=== PATIENT | female | born 1990 | race American Indian/Alaskan Native ===

== ENCOUNTER 2017-07-22 00:08 | Emergency (ER) | payer MEDICAID | END 2017-07-22 00:36 | disposition left against medical advice (07) | LOC: DL.ED 00:08 | DX: Z53.21 Procedure and treatment not carried out due to patient leaving prior to being seen by health care provider (principal) ==

== ENCOUNTER 2018-12-01 19:48 | Emergency (ER) | payer MEDICAID ==
[2018-12-01 20:19] VITALS: BP 143/89
[2018-12-01 21:06] LABS: ANION GAP 12.6; CHLORIDE,CL 98 mmol/L (101-111); SODIUM,NA 133 mmol/L (135-145)
[2018-12-01] MEDS ORDERED: Sodium Chloride 0.9% 1,000 ML IV ONE ×2 (22:19→22:36)
[2018-12-01] MEDS ORDERED: Piperacillin/Tazobactam 3.375 GM in Sodium Chloride 0.9% 100 ML IV ONE (22:20)
[2018-12-01] MEDS ORDERED: Clindamycin Phosphate 600 MG in Sodium Chloride 0.9% 100 ML IV ONE (22:39)
[2018-12-01] MEDS ORDERED: Ibuprofen 800 MG Tab PO ONE (22:39)
--- NOTE | 2018-12-01 23:41 | EDM.PDOC ---
ED HPI GENERAL MEDICAL PROBLEM - General Chief Complaint: Headache Stated Complaint: MIGRAINE Time Seen by Provider: 12/01/18 21:50 Source of Information: Reports: Patient, RN, RN Notes Reviewed History Limitations: Reports: No Limitations - History of Present Illness INITIAL COMMENTS - FREE TEXT/NARRATIVE: Pt to ER with c/o red area on the lower abdomen that she states began this morning and progressively get larger over the day. She states she noticed "something" different on the abdomen last evening, such as "pores popping out". She admits to fever, chills, low back ache, headache. Denies N/V/D, CP, SOB. Patient states she had a about 4 months ago. Onset: Today, Sudden Duration: Getting Worse Location: Reports: Abdomen Quality: Reports: Burning Severity: Severe Improves with: Reports: None Worsens with: Reports: None Associated Symptoms: Reports: Fever/Chills, Headaches Treatments TRANSCRIPTION TYPIST: Reports: Acetaminophen - Related Data Allergies Allergy/AdvReac Type Severity Reaction Status Date / Time pseudoephedrine Allergy Cannot Verified 12/01/18 20:12 [From Jenny] Remember Home Meds: Home Meds Ibuprofen [Motrin] 600 mg PO Q6H PRN #30 tablet 08/12/18 [Rx] Levothyroxine 75 mcg PO ACBREAKFAST #30 tablet 08/12/18 [Rx] Past Medical History - Past Health History Medical/Surgical History: Denies Medical/Surgical History Gastrointestinal History: Reports: Cholelithiasis, Chronic Constipation, GERD 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 Psychiatric History: Reports: Anxiety Other Psychiatric History: patient states that she has anxiety Endocrine/Metabolic History: Reports: Hyperthyroidism, Obesity/BMI 30+ Hematologic History: Reports: Anemia, Blood Transfusion(s) Dermatologic History: Reports: Psoriasis - Past Surgical History HEENT Surgical History: Reports: Oral Surgery GI Surgical History: Reports: Appendectomy, Cholecystectomy Female Surgical History: Reports: Section Social & Family History - Family History Family Medical History: Noncontributory Musculoskeletal: Reports: Arthritis, RA - Tobacco Use Smoking Status *Q: Never Smoker - Caffeine Use Caffeine Use: Reports: Soda - Recreational Drug Use Recreational Drug Use: Yes Recreational Drug Type: Reports: Marijuana/Hashish Recreational Drug Use Frequency: Binges Recreational Drug Last Use: 11/30/2018 - Living Situation & Occupation Living situation: Reports: , with Family Occupation: Employed ED ROS GENERAL - Review of Systems Review Of Systems: ROS reveals no pertinent complaints other than HPI. ED EXAM, SKIN/RASH Exam: See Below Exam Limited By: No Limitations General Appearance: Alert, WD/WN, Moderate Distress Eye Exam: Bilateral Eye: EOMI, Normal Inspection Ears: Normal External Exam, Hearing Grossly Normal Nose: Normal Inspection Throat/Mouth: Normal Inspection, Normal Voice, No Airway Compromise Head: Atraumatic, Normocephalic Neck: Normal Inspection, Supple, Non-Tender, Full Range of Motion Respiratory/Chest: No Respiratory Distress, Lungs Clear, Normal Breath Sounds, No Accessory Muscle Use, Chest Non-Tender Cardiovascular: Normal Peripheral Pulses, Regular Rate, Rhythm, No Edema, No Gallop, No JVD, No Murmur, No Rub Peripheral Pulses: 2+: Radial (L), Radial (R) GI/Abdominal: Normal Bowel Sounds, Soft, Tender (mid sections, lower abdomen) (Female) Exam: Deferred Rectal (Female) Exam: Deferred Back Exam: Normal Inspection, Full Range of Motion Extremities: Normal Inspection, Normal Range of Motion, Non-Tender, No Pedal Edema, Normal Capillary Refill Neurological: Alert, Oriented, CN II-XII Intact, Normal Cognition, Normal Gait, Normal Reflexes, No Motor/Sensory Deficits Psychiatric: Anxious, Tearful Skin: Warm, Dry, Erythema, Increased Warmth ([id number] cellulitis on midsection below umbilical) Location, Skin: Abdomen Associated features: Warmth, Tenderness, Swelling, Induration Lymphatic: No Adenopathy Course - Vital Signs Last Recorded V/S: Last Vital Signs Temp 99.9 F 12/01/18 22:52 Pulse 118 H 12/01/18 20:18 Resp 20 12/01/18 20:18 BP 143/89 H 12/01/18 20:18 Pulse Ox 100 12/01/18 20:18 - Orders/Labs/Meds Orders: Active Orders 24 hr Category Date Time Status CULTURE BLOOD [BC] Stat Lab 12/01/18 20:38 Received CULTURE BLOOD [BC] Stat Lab 12/01/18 20:42 Received Labs: Laboratory Tests 12/01/18 12/01/18 12/01/18 Range/Units 20:17 20:19 20:19 WBC (5.0-10.0) 10^3/uL RBC (4.2-5.4) 10^6/uL Hgb (12.0-16.0) g/dL Hct (37.0-47.0) % MCV (80-100) fL MCH (27.0-34.0) pg MCHC (33.0-35.0) g/dL Plt Count (150-450) 10^3/uL Neut % (Auto) (42.2-75.2) % Lymph % (Auto) (20.5-50.1) % [place] % (Auto) (2-8) % Eos % (Auto) (1.0-3.0) % Baso % (Auto) (0.0-1.0) % ESR (0-20) mm/hr Sodium (135-145) mmol/L Potassium (3.6-5.0) mmol/L Chloride (101-111) mmol/L Carbon Dioxide (21.0-31.0) mmol/L Anion Gap BUN (7-18) mg/dL Creatinine (0.6-1.3) mg/dL Est Cr Clr Drug Dosing mL/min Estimated GFR (MDRD) BUN/Creatinine Ratio Glucose (74-105) mg/dL Lactic Acid (0.5-2.2) mmol/L Calcium (8.4-10.2) mg/dl Total Bilirubin (0.2-1.0) mg/dL AST (10-42) IU/L ALT (10-60) IU/L Alkaline Phosphatase (42-121) IU/L Creatine Kinase (26-174) IU/L Creatine Kinase Index (0-2.4) % CK-MB (CK-2) (0.4-4.7) ng/mL C-Reactive Protein (0.0-1.3) mg/dL Total Protein (6.7-8.2) g/dl Albumin (3.2-5.5) g/dl Globulin Albumin/Globulin Ratio Urine Color Yellow (YELLOW) Urine Appearance Clear (CLEAR) Urine pH 7.5 (5.0-9.0) Ur Specific [place] 1.015 (1.005-1.030) Urine Protein Negative (NEGATIVE) Urine Glucose (UA) Negative (NEGATIVE) Urine Ketones Negative (NEGATIVE) Urine Occult Blood Negative (NEGATIVE) Urine Nitrite Negative (NEGATIVE) Urine Bilirubin Negative (NEGATIVE) Urine Urobilinogen 0.2 (0.2-1.0) mg/dL Ur Leukocyte Esterase Negative (NEGATIVE) Urine HCG, Qual Negative Urine Opiates Screen Negative (NEGATIVE) Ur Oxycodone Screen Positive H (NEGATIVE) Urine Methadone Screen Negative (NEGATIVE) Ur Barbiturates Screen Negative (NEGATIVE) U Tricyclic Antidepress Negative (NEGATIVE) Ur Phencyclidine Scrn Negative (NEGATIVE) Ur Amphetamine Screen Negative (NEGATIVE) U Methamphetamines Scrn Negative (NEGATIVE) Urine MDMA Screen Negative (NEGATIVE) U Benzodiazepines Scrn Negative (NEGATIVE) Urine Cocaine Screen Negative (NEGATIVE) U Marijuana (THC) Screen Positive H (NEGATIVE) 12/01/18 12/01/18 12/01/18 Range/Units 20:38 20:38 20:38 WBC 17.1 H (5.0-10.0) 10^3/uL RBC 4.35 (4.2-5.4) 10^6/uL Hgb 11.0 L D (12.0-16.0) g/dL Hct 34.1 L (37.0-47.0) % MCV 78.4 L D (80-100) fL MCH 25.3 L (27.0-34.0) pg MCHC 32.3 L (33.0-35.0) g/dL Plt Count 382 D (150-450) 10^3/uL Neut % (Auto) 91.1 H (42.2-75.2) % Lymph % (Auto) 4.4 L (20.5-50.1) % [place] % (Auto) 3.6 (2-8) % Eos % (Auto) 0.7 L (1.0-3.0) % Baso % (Auto) 0.2 (0.0-1.0) % ESR (0-20) mm/hr Sodium 133 L (135-145) mmol/L Potassium 3.6 (3.6-5.0) mmol/L Chloride 98 L (101-111) mmol/L Carbon Dioxide 26.0 (21.0-31.0) mmol/L Anion Gap 12.6 BUN 10 (7-18) mg/dL Creatinine 0.8 (0.6-1.3) mg/dL Est Cr Clr Drug Dosing 83.54 mL/min Estimated GFR (MDRD) > 60 BUN/Creatinine Ratio 12.50 Glucose 100 (74-105) mg/dL Lactic Acid 0.8 (0.5-2.2) mmol/L Calcium 9.3 (8.4-10.2) mg/dl Total Bilirubin 0.8 (0.2-1.0) mg/dL AST 27 (10-42) IU/L ALT 21 (10-60) IU/L Alkaline Phosphatase 59 (42-121) IU/L Creatine Kinase (26-174) IU/L Creatine Kinase Index (0-2.4) % CK-MB (CK-2) (0.4-4.7) ng/mL C-Reactive Protein (0.0-1.3) mg/dL Total Protein 8.8 H (6.7-8.2) g/dl Albumin 4.3 (3.2-5.5) g/dl Globulin 4.5 Albumin/Globulin Ratio 0.96 Urine Color (YELLOW) Urine Appearance (CLEAR) Urine pH (5.0-9.0) Ur Specific [place] (1.005-1.030) Urine Protein (NEGATIVE) Urine Glucose (UA) (NEGATIVE) Urine Ketones (NEGATIVE) Urine Occult Blood (NEGATIVE) Urine Nitrite (NEGATIVE) Urine Bilirubin (NEGATIVE) Urine Urobilinogen (0.2-1.0) mg/dL Ur Leukocyte Esterase (NEGATIVE) Urine HCG, Qual Urine Opiates Screen (NEGATIVE) Ur Oxycodone Screen (NEGATIVE) Urine Methadone Screen (NEGATIVE) Ur Barbiturates Screen (NEGATIVE) U Tricyclic Antidepress (NEGATIVE) Ur Phencyclidine Scrn (NEGATIVE) Ur Amphetamine Screen (NEGATIVE) U Methamphetamines Scrn (NEGATIVE) Urine MDMA Screen (NEGATIVE) U Benzodiazepines Scrn (NEGATIVE) Urine Cocaine Screen (NEGATIVE) U Marijuana (THC) Screen (NEGATIVE) 12/01/18 12/01/18 Range/Units 20:38 20:38 WBC (5.0-10.0) 10^3/uL RBC (4.2-5.4) 10^6/uL Hgb (12.0-16.0) g/dL Hct (37.0-47.0) % MCV (80-100) fL MCH (27.0-34.0) pg MCHC (33.0-35.0) g/dL Plt Count (150-450) 10^3/uL Neut % (Auto) (42.2-75.2) % Lymph % (Auto) (20.5-50.1) % [place] % (Auto) (2-8) % Eos % (Auto) (1.0-3.0) % Baso % (Auto) (0.0-1.0) % ESR 20 (0-20) mm/hr Sodium (135-145) mmol/L Potassium (3.6-5.0) mmol/L Chloride (101-111) mmol/L Carbon Dioxide (21.0-31.0) mmol/L Anion Gap BUN (7-18) mg/dL Creatinine (0.6-1.3) mg/dL Est Cr Clr Drug Dosing mL/min Estimated GFR (MDRD) BUN/Creatinine Ratio Glucose (74-105) mg/dL Lactic Acid (0.5-2.2) mmol/L Calcium (8.4-10.2) mg/dl Total Bilirubin (0.2-1.0) mg/dL AST (10-42) IU/L ALT (10-60) IU/L Alkaline Phosphatase (42-121) IU/L Creatine Kinase 173 (26-174) IU/L Creatine Kinase Index 1.0 (0-2.4) % CK-MB (CK-2) 1.70 (0.4-4.7) ng/mL C-Reactive Protein 4.2 H (0.0-1.3) mg/dL Total Protein (6.7-8.2) g/dl Albumin (3.2-5.5) g/dl Globulin Albumin/Globulin Ratio Urine Color (YELLOW) Urine Appearance (CLEAR) Urine pH (5.0-9.0) Ur Specific [place] (1.005-1.030) Urine Protein (NEGATIVE) Urine Glucose (UA) (NEGATIVE) Urine Ketones (NEGATIVE) Urine Occult Blood (NEGATIVE) Urine Nitrite (NEGATIVE) Urine Bilirubin (NEGATIVE) Urine Urobilinogen (0.2-1.0) mg/dL Ur Leukocyte Esterase (NEGATIVE) Urine HCG, Qual Urine Opiates Screen (NEGATIVE) Ur Oxycodone Screen (NEGATIVE) Urine Methadone Screen (NEGATIVE) Ur Barbiturates Screen (NEGATIVE) U Tricyclic Antidepress (NEGATIVE) Ur Phencyclidine Scrn (NEGATIVE) Ur Amphetamine Screen (NEGATIVE) U Methamphetamines Scrn (NEGATIVE) Urine MDMA Screen (NEGATIVE) U Benzodiazepines Scrn (NEGATIVE) Urine Cocaine Screen (NEGATIVE) U Marijuana (THC) Screen (NEGATIVE) Meds: Medications Discontinued Medications Generic Name Dose Route Start Last Admin Trade Name Freq PRN Reason Stop Dose Admin Piperacillin Sod/Tazobactam 100 mls @ 200 mls/hr 12/01/18 22:20 12/01/18 22: 50 Sod 3.375 gm/ Sodium Chloride IV 12/01/18 22:49 Not Given ONETIME ONE Sodium Chloride 1,000 mls @ 150 mls/hr 12/01/18 22:19 Normal Saline IV 12/02/18 04:58 .BOLUS ONE Sodium Chloride 1,000 mls @ 999 mls/hr 12/01/18 22:36 12/01/18 22:43 Normal Saline IV 12/01/18 23:36 999 mls/hr .BOLUS ONE Administration Clindamycin Phosphate 600 mg/ 104 mls @ 200 mls/hr 12/01/18 22:39 12/01/18 22 :56 Sodium Chloride IV 12/01/18 23:10 200 mls/hr ONETIME ONE Administration Ibuprofen 800 mg 12/01/18 22:39 12/01/18 22:52 Motrin PO 12/01/18 22:40 800 mg ONETIME ONE Administration Departure - Departure Time of Disposition: 23:40 Disposition: Home, Self-Care 01 Condition: Fair Clinical Impression: Cellulitis Qualifiers: Site of cellulitis: other site Qualified Code(s): L03.818 - Cellulitis of other sites - Discharge Information *PRESCRIPTION DRUG MONITORING PROGRAM REVIEWED*: No *COPY OF PRESCRIPTION DRUG MONITORING REPORT IN PATIENT WENDY: No Instructions: Cellulitis, Adult, [id number] Referrals: Ella Cuevas MD [Physician] - Forms: ED Department Discharge Additional Instructions: Use Tylenol and/or ibuprofen as directed for pain and fever RX: Bactrim Follow up with your primary care facility - My Orders Last 24 Hours: My Active Orders 12/01/18 20:38 CULTURE BLOOD [BC] Stat 12/01/18 20:42 CULTURE BLOOD [BC] Stat - Assessment/Plan Last 24 Hours: My Active Orders 12/01/18 20:38 CULTURE BLOOD [BC] Stat 12/01/18 20:42 CULTURE BLOOD [BC] Stat
== END 2018-12-01 23:47 | disposition home or self-care (01) ==
LOC: DL.ED 19:48
DX: L03.818 Cellulitis of other sites (principal); E66.9 Obesity, unspecified; Z88.8 Allergy status to other drugs, medicaments and biological substances
CPT/HCPCS: 36415; 74176; 80053; 80305; 81003; 81025; 82550; 82553; 83605; 85025; 85651; 86140; 87040; 96361; 96365; 99284; A9270; J3490; J7030; J7050

== ENCOUNTER 2020-11-20 18:36 | Emergency (ER) | payer MEDICAID ==
[2020-11-20 17:22] VITALS: BP 138/86; PULSE 62
--- NOTE | 2020-11-20 17:39 | EDM.PDOCBH ---
ED HPI GENERAL MEDICAL PROBLEM - General Chief Complaint: Behavioral/Psych Time Seen by Provider: 11/20/20 17:25 Source of Information: Reports: Patient History Limitations: Reports: No Limitations - History of Present Illness INITIAL COMMENTS - FREE TEXT/NARRATIVE: This 30 yo female patient reports to the ED due to increased anxiety. Onset: Today Duration: Minutes: Location: Reports: Chest Quality: Reports: Other Severity: Moderate Improves with: Reports: None Worsens with: Reports: None Associated Symptoms: Reports: Chest Pain, Shortness of Breath - Related Data Allergies Allergy/AdvReac Type Severity Reaction Status Date / Time pseudoephedrine Allergy Cannot Verified 12/01/18 20:12 [From Sudafed] Remember Home Meds: Home Meds Ibuprofen [Motrin] 600 mg PO Q6H PRN #30 tablet 08/12/18 [Rx] Levothyroxine 75 mcg PO ACBREAKFAST #30 tablet 08/12/18 [Rx] Omeprazole Magnesium 20 mg PO DAILY 06/08/19 [History] Cyanocobalamin (Vitamin B-12) [Vitamin B-12] 100 mcg PO ASDIRECTED 11/20/20 [History] Escitalopram Oxalate 30 mg PO DAILY 11/20/20 [History] Past Medical History - Past Health History Medical/Surgical History: Denies Medical/Surgical History Gastrointestinal History: Reports: Cholelithiasis, Chronic Constipation, GERD 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 Psychiatric History: Reports: Anxiety Other Psychiatric History: patient states that she has anxiety Endocrine/Metabolic History: Reports: Hyperthyroidism, Obesity/BMI 30+ Hematologic History: Reports: Anemia, Blood Transfusion(s) Dermatologic History: Reports: Psoriasis - Past Surgical History HEENT Surgical History: Reports: Oral Surgery GI Surgical History: Reports: Appendectomy, Cholecystectomy Female Surgical History: Reports: Section Social & Family History - Family History Family Medical History: No Pertinent Family History Musculoskeletal: Reports: Arthritis, RA - Tobacco Use Tobacco Use Status *Q: Current Every Day Tobacco User Years of Tobacco use: 14 Packs/Tins Daily: 1 - Caffeine Use Caffeine Use: Reports: Soda - Recreational Drug Use Recreational Drug Use: Yes Recreational Drug Type: Reports: Marijuana/Hashish - Living Situation & Occupation Living situation: Reports: , with Family Occupation: Employed ED ROS GENERAL - Review of Systems Review Of Systems: Comprehensive ROS is negative, except as noted in HPI. ED EXAM, BEHAVIORAL HEALTH - Physical Exam Exam: See Below Exam Limited By: No Limitations General Appearance: Alert, WD/WN, Anxious, Moderate Distress, Obese Eye Exam: Bilateral Eye: EOMI, Normal Inspection, PERRL Ears: Normal External Exam, Normal Canal, Hearing Grossly Normal, Normal TMs Nose: Normal Inspection, Normal Mucosa, No Blood Throat/Mouth: Normal Inspection, Normal Lips, Normal Teeth, Normal Gums, Normal Oropharynx, Normal Voice, No Airway Compromise Head: Atraumatic, Normocephalic Neck: Normal Inspection, Supple, Non-Tender, Full Range of Motion Respiratory/Chest: No Respiratory Distress, Lungs Clear, Normal Breath Sounds, No Accessory Muscle Use, Chest Non-Tender Cardiovascular: Normal Peripheral Pulses, Regular Rate, Rhythm, No Edema, No Gallop, No JVD, No Murmur, No Rub GI/Abdominal: Normal Bowel Sounds, Soft, Non-Tender, No Organomegaly, No Distention, No Abnormal Bruit, No Mass, Other (obese) (Female) Exam: Deferred Rectal (Female) Exam: Deferred Back Exam: Normal Inspection, Full Range of Motion, NT Extremities: Normal Inspection, Normal Range of Motion, Non-Tender, Normal Capil bertha Refill, No Pedal Edema Neurological: Alert, CN II-XII Intact, Normal Cognition, Normal Gait, Normal Reflexes, No Motor/Sensory Deficits, Oriented x 3 Psychiatric: Alert, Normal Affect, Normal Cognition, Oriented, Other (anxious) Skin Exam: Warm, Dry, Intact, Normal color, No rash COURSE, BEHAVIORAL HEALTH COMP - Course Vital Signs: Last Vital Signs Temp 36.9 C 11/20/20 17:15 Pulse 62 11/20/20 17:15 Resp 20 11/20/20 17:15 BP 138/86 11/20/20 17:15 Pulse Ox 100 11/20/20 17:15 Orders, Labs, Meds: Active Orders 24 hr Category Date Time Status EKG Documentation Completion [RC] STAT Care 11/20/20 17:32 Ordered UA RFX JH AND CULT IF INDIC [URIN] Urgent Lab 11/20/20 17:36 Ordered Laboratory Tests 11/20/20 11/20/20 11/20/20 Range/Units 17:07 17:55 17:55 WBC 9.9 (5.0-10.0) 10^3/uL RBC 4.62 (4.2-5.4) 10^6/uL Hgb 11.0 L D (12.0-16.0) g/dL Hct 35.1 L (37.0-47.0) % MCV 76.0 L D (80-100) fL MCH 23.8 L (27.0-34.0) pg MCHC 31.3 L (33.0-35.0) g/dL Plt Count 431 D (150-450) 10^3/uL Neut % (Auto) 82.7 H (42.2-75.2) % Lymph % (Auto) 9.4 L (20.5-50.1) % [place] % (Auto) 5.9 (2-8) % Eos % (Auto) 1.3 (1.0-3.0) % Baso % (Auto) 0.7 (0.0-1.0) % Sodium 139 (136-145) mmol/L Potassium 4.2 (3.5-5.1) mmol/L Chloride 103 (98-107) mmol/L Carbon Dioxide 32 (21-32) mmol/L Anion Gap 8.2 (7-13) mEq/L BUN 7 (7-18) mg/dL Creatinine 0.64 (0.55-1.02) mg/dL Est Cr Clr Drug Dosing 93.16 mL/min Estimated GFR (MDRD) > 60 BUN/Creatinine Ratio 10.9 (No establ ref range) Glucose 98 (74-99) mg/dL Calcium 9.4 (8.5-10.1) mg/dL Total Bilirubin 0.2 (0.2-1.0) mg/dL AST 17 (15-37) U/L ALT 12 L (14-59) U/L Alkaline Phosphatase 72 (46-116) U/L Troponin I 0.017 (0.000-0.056) ng/mL Total Protein 8.5 H (6.4-8.2) g/dL Albumin 3.7 (3.4-5.0) g/dL Globulin 4.8 Albumin/Globulin Ratio 0.8 Urine HCG, Qual Negative Medications Discontinued Medications Generic Name Dose Route Start Last Admin Trade Name Francisco PRN Reason Stop Dose Admin Lorazepam 0.5 mg 11/20/20 17:37 11/20/20 17:45 Ativan PO 11/20/20 17:38 0.5 mg ONETIME ONE Administration Departure - Departure Time of Disposition: 18:34 Disposition: Home, Self-Care 01 Condition: Fair Clinical Impression: Anxiety, Nonspecific chest pain - Discharge Information *PRESCRIPTION DRUG MONITORING PROGRAM REVIEWED*: Not Applicable *COPY OF PRESCRIPTION DRUG MONITORING REPORT IN PATIENT WENDY: Not Applicable Instructions: Managing Anxiety, Adult, Nonspecific Chest Pain, Adult, [id number] Forms: ED Department Discharge Care Plan Goals: The patient was advised of the examination, lab and EKG results during the visit. The patient was given an oral dose of Ativan (0.5 mg) while in the ED. The patient was encouraged to follow-up with her primary care facility for continued evaluation and further treatment. If the patient has any additional symptoms or concerns, the patient should either return to the emergency department or visit her primary care facility. Sepsis Event Note (ED) - Evaluation Sepsis Screening Result: No Definite Risk - Focused Exam Vital Signs: Vital Signs Temp Pulse Resp BP Pulse Ox 11/20/20 17:15 36.9 C 62 20 138/86 100 - My Orders Last 24 Hours: My Active Orders 11/20/20 17:32 EKG Documentation Completion [RC] STAT 11/20/20 17:36 UA RFX JH AND CULT IF INDIC [URIN] Urgent - Assessment/Plan Last 24 Hours: My Active Orders 11/20/20 17:32 EKG Documentation Completion [RC] STAT 11/20/20 17:36 UA RFX JH AND CULT IF INDIC [URIN] Urgent
[2020-11-20] MEDS: LORazepam 0.5 MG Tab PO ONE (17:45)
[2020-11-20 18:23] LABS: ANION GAP 8.2 mEq/L (7-13); CHLORIDE,CL 103 mmol/L (98-107); SODIUM,NA 139 mmol/L (136-145)
== END 2020-11-20 18:39 | disposition home or self-care (01) ==
LOC: DL.ED 18:36
DX: F41.9 Anxiety disorder, unspecified (principal); E66.9 Obesity, unspecified; K21.9 Gastro-esophageal reflux disease without esophagitis; E05.90 Thyrotoxicosis, unspecified without thyrotoxic crisis or storm; Z72.0 Tobacco use; Z88.8 Allergy status to other drugs, medicaments and biological substances; Z68.39 Body mass index [BMI] 39.0-39.9, adult; Z79.899 Other long term (current) drug therapy
CPT/HCPCS: 36415; 80053; 81003; 81025; 84484; 85025; 93005; 99283; 99285; A9270

== ENCOUNTER 2021-01-20 10:24 | Emergency (ER) | payer MEDICAID ==
[2021-01-20 11:00] VITALS: BP 127/88; PULSE 78
--- NOTE | 2021-01-20 11:18 | EDM.PDOC ---
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 The patient reports she feels like she has to go to the bathroom constantly, but is unable to void large amounts. The patient reports she did not get into the clinic as she works until about 4 pm and does not have time to get into the clinic. The patient reports her symptoms have been getting worse throughout the weekend. The patient reports she has taken Tylenol and increased her oral fluid intake. Onset Date: 01/18/21 Duration: Constant, Getting Worse Location: Reports: Abdomen (lower) Quality: Reports: Burning (with urination), Pressure Severity: Moderate Improves with: Reports: None Worsens with: Reports: None Context: Reports: Other Associated Symptoms: Reports: No Other Symptoms - Related Data Allergies Allergy/AdvReac Type Severity Reaction Status Date / Time pseudoephedrine Allergy Cannot Verified 12/01/18 20:12 [From Jenny] Remember Home Meds: Home Meds Ibuprofen [Motrin] 600 mg PO Q6H PRN #30 tablet 08/12/18 [Rx] Omeprazole Magnesium 20 mg PO DAILY 06/08/19 [History] Cyanocobalamin (Vitamin B-12) [Vitamin B-12] 100 mcg PO ASDIRECTED 11/20/20 [History] Escitalopram Oxalate 30 mg PO DAILY 11/20/20 [History] Levothyroxine 50 mcg PO ACBREAKFAST 01/20/21 [History] Past Medical History - Past Health History Medical/Surgical History: Denies Medical/Surgical History Gastrointestinal History: Reports: Cholelithiasis, Chronic Constipation, GERD 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 Psychiatric History: Reports: Anxiety Other Psychiatric History: patient states that she has anxiety Endocrine/Metabolic History: Reports: Hyperthyroidism, Obesity/BMI 30+ Hematologic History: Reports: Anemia, Blood Transfusion(s) Dermatologic History: Reports: Psoriasis - Past Surgical History HEENT Surgical History: Reports: Oral Surgery GI Surgical History: Reports: Appendectomy, Cholecystectomy Female Surgical History: Reports: Section Social & Family History - Family History Family Medical History: No Pertinent Family History Musculoskeletal: Reports: Arthritis, RA - Tobacco Use Tobacco Use Status *Q: Current Every Day Tobacco User Years of Tobacco use: 13 Packs/Tins Daily: 1 - Caffeine Use Caffeine Use: Reports: Soda - Recreational Drug Use Recreational Drug Use: Yes Recreational Drug Type: Reports: Marijuana/Hashish - Living Situation & Occupation Living situation: Reports: , with Family Occupation: Employed ED ROS GENERAL - Review of Systems Review Of Systems: Comprehensive ROS is negative, except as noted in HPI. ED EXAM, RENAL/ - Physical Exam Exam: See Below Exam Limited By: No Limitations General Appearance: Alert, WD/WN, Mild Distress, Obese Eye Exam: Bilateral Eye: EOMI, Normal Inspection, PERRL Ears: Normal External Exam, Normal Canal, Hearing Grossly Normal, Normal TMs Nose: Normal Inspection, Normal Mucosa, No Blood Throat/Mouth: Normal Inspection, Normal Lips, Normal Teeth, Normal Gums, Normal Oropharynx, Normal Voice, No Airway Compromise Head: Atraumatic, Normocephalic Neck: Normal Inspection, Supple, Non-Tender, Full Range of Motion Respiratory/Chest: No Respiratory Distress, Lungs Clear, Normal Breath Sounds, No Accessory Muscle Use, Chest Non-Tender Cardiovascular: Normal Peripheral Pulses, Regular Rate, Rhythm, No Edema, No Gallop, No JVD, No Murmur, No Rub GI/Abdominal: Normal Bowel Sounds, Soft, No Organomegaly, No Distention, No Abnormal Bruit, No Mass, Pelvis Stable, Tender (lower abdomen (diffuse)) (Female) Exam: Deferred Rectal (Female) Exam: Deferred Back Exam: Normal Inspection, Full Range of Motion, NT Extremities: Normal Inspection, Normal Range of Motion, Non-Tender, Normal Capillary Refill, No Pedal Edema Neurological: Alert, Oriented, CN II-XII Intact, Normal Cognition, Normal Gait, Normal Reflexes, No Motor/Sensory Deficits Psychiatric: Tearful Skin Exam: Warm, Dry, Intact, Normal Color, No Rash Lymphatic: No Adenopathy Course - Vital Signs Last Recorded V/S: Last Vital Signs Temp 35.1 C L 01/20/21 10:43 Pulse 78 01/20/21 10:43 Resp 14 01/20/21 10:43 BP 127/88 01/20/21 10:43 Pulse Ox 100 01/20/21 10:43 - Orders/Labs/Meds Orders: Active Orders 24 hr Category Date Time Status CULTURE URINE [RM] Stat Lab 01/20/21 11:05 Received Labs: Laboratory Tests 01/20/21 01/20/21 01/20/21 Range/Units 11:05 11:05 11:05 Urine Color Yellow (YELLOW) Urine Appearance Turbid (CLEAR) Urine pH 7.0 (5.0-9.0) Ur Specific [place] >= 1.030 (1.005-1.030) Urine Protein 100 H (NEGATIVE) Urine Glucose (UA) Negative (NEGATIVE) Urine Ketones Negative (NEGATIVE) Urine Occult Blood Moderate H (NEGATIVE) Urine Nitrite Negative (NEGATIVE) Urine Bilirubin Small H (NEGATIVE) Urine Urobilinogen 2.0 H (0.2-1.0) mg/dL Ur Leukocyte Esterase Small H (NEGATIVE) Urine RBC 50-75 H /HPF Urine WBC >100 H (0-5/HPF) /HPF Ur Epithelial Cells Many H (NOT SEEN) /HPF Amorphous Sediment Few (NOT SEEN) /HPF Urine Bacteria Moderate H (0-FEW/HPF) /HPF Urine Mucus Moderate H (NOT SEEN) /LPF Urine HCG, Qual Negative Urine Opiates Screen Positive H (NEGATIVE) Ur Oxycodone Screen Positive H (NEGATIVE) Urine Methadone Screen Negative (NEGATIVE) Ur Barbiturates Screen Negative (NEGATIVE) U Tricyclic Antidepress Negative (NEGATIVE) Ur Phencyclidine Scrn Negative (NEGATIVE) Ur Amphetamine Screen Negative (NEGATIVE) U Methamphetamines Scrn Positive H (NEGATIVE) Urine MDMA Screen Negative (NEGATIVE) U Benzodiazepines Scrn Negative (NEGATIVE) Urine Cocaine Screen Negative (NEGATIVE) U Marijuana (THC) Screen Positive H (NEGATIVE) Meds: Medications Discontinued Medications Generic Name Dose Route Start Last Admin Trade Name Freq PRN Reason Stop Dose Admin Phenazopyridine HCl 190 mg 01/20/21 11:30 Phenazopyridine 95 Mg Tab PO 01/20/21 11:31 ONETIME ONE Departure - Departure Time of Disposition: 11:36 Disposition: Home, Self-Care 01 Condition: Fair Clinical Impression: UTI, Urinary tract infectious disease - Discharge Information *PRESCRIPTION DRUG MONITORING PROGRAM REVIEWED*: Not Applicable *COPY OF PRESCRIPTION DRUG MONITORING REPORT IN PATIENT WENDY: Not Applicable Instructions: Urinary Tract Infection, Adult, [id number] Forms: ED Department Discharge Care Plan Goals: The patient was advised of the examination and lab results during the visit. The patient was given an oral dose of Pyridium while in the ED. The patient was discharged with a script for 1) Keflex (500 mg) #15 to take 1 by mouth 3 times per day for 5 days and 2) Pyridium (200 mg) #6 to take 1 by mouth 3 times per day for 2 days. The patient was encouraged to continue to increase her oral fluid consumption. If the patient has any additional symptoms or concerns, the patient should either return to the emergency department or visit her primary care facility. Sepsis Event Note (ED) - Evaluation Sepsis Screening Result: No Definite Risk - Focused Exam Vital Signs: Vital Signs Temp Pulse Resp BP Pulse Ox 01/20/21 10:43 35.1 C L 78 14 127/88 100 - My Orders Last 24 Hours: My Active Orders 01/20/21 11:05 CULTURE URINE [RM] Stat - Assessment/Plan Last 24 Hours: My Active Orders 01/20/21 11:05 CULTURE URINE [RM] Stat
[2021-01-20] MEDS ORDERED: Phenazopyridine 95 MG Tab PO ONE (11:30)
== END 2021-01-20 11:49 | disposition home or self-care (01) ==
LOC: DL.ED 10:24
DX: N39.0 Urinary tract infection, site not specified (principal); K21.9 Gastro-esophageal reflux disease without esophagitis; E05.90 Thyrotoxicosis, unspecified without thyrotoxic crisis or storm; Z72.0 Tobacco use; Z88.8 Allergy status to other drugs, medicaments and biological substances; Z79.899 Other long term (current) drug therapy
CPT/HCPCS: 80305; 81001; 81025; 87086; 87088; 87186; 99283; A9270

== ENCOUNTER 2022-12-16 17:13 | Observation (INO) | payer MEDICAID ==
[2022-12-16] MEDS ORDERED: Sodium Chloride 0.9% 10 ML Syringe FLUSH PRN (18:03)
[2022-12-16] MEDS ORDERED: Lactated Ringers 1,000 ML IV SCH (18:15)
[2022-12-16 18:21] LABS: AMPHETAMINES,URINE NEGATIVE (NEGATIVE); BARBITURATES,URINE NEGATIVE (NEGATIVE); BENZODIAZEPINE,URINE NEGATIVE (NEGATIVE); MDMA (ECSTASY), URINE NEGATIVE (NEGATIVE); METHADONE,URINE NEGATIVE (NEGATIVE); METHAMPHETAMINES,URINE POSITIVE (NEGATIVE); OPIATES,URINE NEGATIVE (NEGATIVE); OXYCODONE,URINE NEGATIVE (NEGATIVE); PHENCYCLIDINE,URINE NEGATIVE (NEGATIVE); TCA,URINE NEGATIVE (NEGATIVE)
[2022-12-16 19:06] LABS: HEMOGLOBIN A1C 6.3 % (<5.7)
[2022-12-16 19:26] LABS: ESTIMATED GFR 87 mL/min (>=60)
[2022-12-16] MEDS: metFORMIN 500 MG Tab PO SCH (21:00)
[2022-12-16] MEDS ORDERED: Sodium Chloride 0.9% 10 ML Syringe FLUSH SCH (21:00)
[2022-12-16] MEDS: hydrOXYzine HCl 25 MG Tab PO PRN (21:01)
[2022-12-16] MEDS: Buprenorphine 8 MG Tab.SL SL SCH (21:01)
[2022-12-16] MEDS ORDERED: Betamethasone Acetate/Betamethasone Sod Phosphate 6 MG/1 ML MDV IM ONE (23:08)
[2022-12-16] MEDS: Docusate Sodium 100 MG Cap PO PRN (23:43)
[2022-12-17] MEDS ORDERED: Levothyroxine 75 MCG Tab PO SCH (06:00)
[2022-12-17] MEDS ORDERED: metFORMIN 500 MG Tab PO SCH (08:00)
[2022-12-17] MEDS ORDERED: Ferrous Sulfate 325 MG Tab PO SCH (08:00)
[2022-12-17] MEDS ORDERED: Prenatal Multivitamin with Calcium/Folic Acid/Iron Tab PO SCH (08:00)
[2022-12-17] MEDS: Buprenorphine 8 MG Tab.SL SL SCH (08:33)
[2022-12-17] MEDS: hydrOXYzine HCl 25 MG Tab PO PRN (09:55)
[2022-12-17] MEDS: Docusate Sodium 100 MG Cap PO PRN (09:58)
[2022-12-17] MEDS: metFORMIN 500 MG Tab PO SCH (09:58)
[2022-12-17 11:00] VITALS: BP 137/88; PULSE 84
[2022-12-17] MEDS ORDERED: Buprenorphine 8 MG Tab.SL SL ONE (14:04)
[2022-12-19 11:41] LABS: C.TRACHOMATIS BY TMA Negative (Negative); N.GONORRHOEAE BY TMA Negative (Negative)
== END 2022-12-17 15:15 | disposition home or self-care (01) ==
LOC: DL.OBCHECK 17:13 → DL.OB 18:03
PROVIDERS: ADMIT Family Medicine; ATTEND Family Medicine
DX: O16.9 Unspecified maternal hypertension, unspecified trimester (principal); O99.343 Other mental disorders complicating pregnancy, third trimester; F41.9 Anxiety disorder, unspecified; O99.891 Other specified diseases and conditions complicating pregnancy; M19.90 Unspecified osteoarthritis, unspecified site; O99.283 Endocrine, nutritional and metabolic diseases complicating pregnancy, third trimester; E03.9 Hypothyroidism, unspecified; E66.9 Obesity, unspecified; O99.013 Anemia complicating pregnancy, third trimester; D64.9 Anemia, unspecified; F17.210 Nicotine dependence, cigarettes, uncomplicated; Z79.899 Other long term (current) drug therapy; Z79.84 Long term (current) use of oral hypoglycemic drugs; Z79.890 Hormone replacement therapy; Z88.8 Allergy status to other drugs, medicaments and biological substances; Z98.890 Other specified postprocedural states; Z20.822 Contact with and (suspected) exposure to COVID-19; Z3A.34 34 weeks gestation of pregnancy
CPT/HCPCS: 36415; 59025; 76805; 76819; 80305-QW; 81003; 82565; 82570; 83036; 83615; 84156; 84443; 84450; 84460; 84520; 84550; 85027; 86592; 87077; 87081; 87186; 87491; 87591; A9270-GY; G0378; J7120; U0002